=== PATIENT | male | born 1990 | race Asian ===

== ENCOUNTER 2018-03-07 22:41 | Emergency (ER) | payer OTHER ==
--- NOTE | 2018-03-07 23:44 | RADIOLOGY REPORT (SQ) ---
EXAM DESCRIPTION: CHEST SINGLE VIEW CLINICAL HISTORY: 27 years Male, chest pain COMPARISON: None. NUMBER OF VIEWS/TECHNIQUE: 1/AP LIMITATIONS: None. FINDINGS: Normal lung volume, clear parenchyma, normal cardiac silhouette, and intact bony thorax. IMPRESSION: No acute cardiopulmonary findings.
[2018-03-08 00:12] VITALS: BP 121/74
--- NOTE | 2018-03-08 00:16 | ER Document Report ---
ED General - General Chief Complaint: Chest Pain Stated Complaint: CHEST PAIN Time Seen by Provider: 03/07/18 23:14 Notes: Patient is a 27 year old male without past medical history who presents with intermittent chest pain. Patient does report the pain is currently not present. He states however earlier today while at work he developed a stabbing , shooting pain to the left side of his chest. He states it came on abruptly and did resolve spontaneously. He has had similar pains in the past but he states they are usually not this intense. He is uncertain what triggered the pain and it did go away on its own. He denies any associated nausea, vomiting, diaphoresis or shortness of breath. He denies any cardiac history, history of DVT or pulmonary embolus, or any history of connective tissue disorders. He has not seen his primary care doctor regarding these concerns. TRAVEL OUTSIDE OF THE [place] IN LAST 30 DAYS: No Past Medical History - General Information source: Patient - Social History Smoking Status: Never Smoker Chew tobacco use (# tins/day): No Frequency of alcohol use: None Drug Abuse: None Lives with: Friend Family History: Reviewed & Not Pertinent Patient has suicidal ideation: No Patient has homicidal ideation: No Renal/ Medical History: Denies: Hx Peritoneal Dialysis Review of Systems - Review of Systems Notes: Constitutional: Negative for fever. HENT: Negative for sore throat. Eyes: Negative for visual changes. Cardiovascular: Positive for chest pain. Respiratory: Negative for shortness of breath. Gastrointestinal: Negative for abdominal pain, vomiting or diarrhea. Genitourinary: Negative for dysuria. Musculoskeletal: Negative for back pain. Skin: Negative for rash. Neurological: Negative for headaches, weakness or numbness. 10 point ROS negative except as marked above and in HPI. Physical Exam - Vital signs Vitals: Temp Pulse Resp BP Pulse Ox 98.4 F 92 20 143/93 H 99 03/07/18 22:50 03/07/18 22:50 03/07/18 22:50 03/07/18 22:50 03/07/18 22:50 Interpretation: Hypertensive Notes: PHYSICAL EXAMINATION: GENERAL: Well-appearing, well-nourished and in no acute distress. HEAD: Atraumatic, normocephalic. EYES: Pupils equal round and reactive to light, extraocular movements intact, sclera anicteric, conjunctiva are normal. ENT: nares patent, oropharynx clear without exudates. Moist mucous membranes. NECK: Normal range of motion, supple without lymphadenopathy LUNGS: Breath sounds clear to auscultation bilaterally and equal. No wheezes rales or rhonchi. HEART: Regular rate and rhythm without murmurs ABDOMEN: Soft, nontender, normoactive bowel sounds. No guarding, no rebound. No masses appreciated. EXTREMITIES: Normal range of motion, no pitting or edema. No cyanosis. NEUROLOGICAL: No focal neurological deficits. Moves all extremities spontaneously and on command. PSYCH: Normal mood, normal affect. SKIN: Warm, Dry, normal turgor, no rashes or lesions noted. Course - Re-evaluation Re-evalutation: 03/08/18 00:13 Presentation of chest pain in an otherwise well appearing patient. Low clinical suspicion for ACS given clinical history, exam, EKG without ST elevations or depressions. There is no indication for serial troponin testing as patient does not have any pain, his clinical history is not all consistent with ACS, he has no risk factors for this diagnosis and his EKG is unremarkable. PE also seems unlikely given clinical history, absence of tachycardia or dyspnea. Patient is PERC criteria negative. CXR without evidence of pneumothorax or pneumonia. No widened mediastinum. Aortic dissection also seems unlikely given history, symmetric pulses, CXR, and vitals. - Vital Signs Vital signs: Temp Pulse Resp BP Pulse Ox 98.4 F 83 14 121/74 97 03/08/18 00:09 03/08/18 00:09 03/08/18 00:09 03/08/18 00:09 03/08/18 00:09 - Diagnostic Test Radiology reviewed: Image reviewed, Reports reviewed Radiology results interpreted by me: 03/08/18 00:15 Chest x-ray: No acute infiltrate or pneumothorax - EKG Interpretation by Me Additional EKG results interpreted by me: 03/08/18 00:15 Normal sinus rhythm. Rate 83. No ST elevations or depressions. QTC is 405. Early repol pattern Discharge - Discharge Clinical Impression: Chest wall pain Condition: Good Disposition: HOME, SELF-CARE Additional Instructions: You were seen today for chest pain. The exact cause of your pain is unclear. However, based on your chest x-ray, and EKG it does not appear that it is from an immediately life-threatening cause at this time. Please return to emergency department immediately if you have worsening of your chest pain, shortness of breath, vomiting, become unable to exert yourself due to pain or difficulty breathing, you pass out, or have any pain that radiates into your arms, jaw, or back. Please also return if you have any additional symptoms that are concerning to you. Forms: Return to Work
--- NOTE | 2018-03-08 09:49 | EKG REPORT ---
SEVERITY:- ABNORMAL ECG - SINUS RHYTHM PROBABLE LEFT VENTRICULAR HYPERTROPHY : Confirmed by: Huber Cleaning MD 08-Mar-2018 09:48:58
== END 2018-03-08 00:25 | disposition home or self-care (01) ==
LOC: ER 22:41
DX: R07.89 Other chest pain (principal)
CPT/HCPCS: 71045; 93005; 93010; 99285